=== PATIENT | male | born 1970 | race Caucasian/White ===

== ENCOUNTER 2018-09-28 13:51 | Inpatient (IN) | payer OTHER ==
[2018-09-28] MEDS ORDERED: CITRIC ACID/SODIUM CITRATE 30 ML UDCUP PO PRN (13:59)
[2018-09-28] MEDS ORDERED: ONDANSETRON DISINTEGRATING 4 MG TAB PO PRN (13:59)
[2018-09-28] MEDS ORDERED: PROMETHAZINE HCL 25 MG TAB PO PRN (13:59)
--- NOTE | 2018-09-28 15:03 | BAPA ---
IDENTIFYING DATA: The patient is a 48-year-old white male brought in by his , jamaica Narayanan phill the recommendation of his outpatient psychiatrist, Angel Farrell MD. This manual writer has treated thi s patient in the past for his bipolar mood disorder with electroconvulsive therapy in 2006 and 2012. He has a recent psychiatric hospitalization at [place] in May of 2018. Sources of information include the patient, who is a fair historian, his , and conversation with Dr. Farrell. HISTORY OF PRESENT ILLNESS: Please see the manual writer's initial consultation dated 12/21/2012, and disch arge summary dated 12/25/2012. This patient deals with severe bipolar 1 disorder with history of psy chotic and near catatonic features, who presents now with predominantly depressed symptoms fluctuatin g with periods of mixed symptomatology. He is recently dealing with near-global insomnia, accompanie d by racing thoughts, agitation, free-floating anxiety, nihilistic and self-deprecating rumination. He has some diminishment of appetite. He suffers with anergia, amotivation, anhedonia, excessive jennifer lt, indecision, and hopelessness. He has never felt this hopeless in his life, and has been contempl ating certain ways of killing himself including the handgun that they keep in his home, that his has hidden from him, or hanging himself. He has recently asked the for the gun. He was hospitalized in May of this year at [place] after he presumed that his long-standing medi cations, Seroquel 450 mg and Lamictal 200 mg, were no longer working as he was having impairment in s leep and increased agitation. His symptoms at that time were more consistent with a charla mixed stat e with severe agitation to the point of banging his head and global insomnia. His Seroquel was taken off and replaced by olanzapine. He also took himself off Lamictal, feeling a sense of futility arou nd any medications. The mixed episode has transitioned into predominantly depressed 1 with intersper sed mixed states. Dr. Farrell has been kept somewhat at arm's length by the patient as he has tried t o "white knuckle it" and get through, hoping it would just get better on its own. Dr. Farrell, davina mendoza, did start Ativan 2 mg at h.s. for sleep with no real benefit. The patient denies any medical issu es that could be contributing to this or no change in his medical status, which is significant only f or history of tension headaches and mild dyslipidemia, nor does he endorse present active substance u se. He does admit, however, to trying CBD and then vaping THC to help with sleep. These backfired. He has a long list of medications by history that were either poorly tolerated, made things worse or simply did not help. This is providing him further sense of futility. He is feeling somewhat caugh t between a rock and a hard place as he also is fearful about ECT given the degree of nausea he had w ith it in the past. Both he and acknowledged, however, that it was the most quickly and robustl y effective treatment he has had the 2 times he has done it historically. PAST PSYCHIATRIC HISTORY, MEDICAL HISTORY, FAMILY HISTORY, SOCIAL HISTORY: Please see the manual writer's c onsultation dated December of 2012. MEDICAL AND SUBSTANCE-RELATED ISSUES: Noncontributory. FAMILY HISTORY: Remains unchanged of course, and is significant for dense family history of bipolar illness and the use of ECT in a paternal grandmother. MENTAL STATUS EXAM: The patient is a 48-year-old white male who appears his stated age. There is ps ychomotor retardation and affect of blunting, with intermittent eye contact, impoverishment of speech . He has adequate grooming and hygiene, and is appropriately dressed. There is no outward evidence of hallucinations and he denies any delusional material or hallucinations, although his degree of clementine f-deprecating rumination is excessive. His mood is predominantly depressed, but he has episodic kevin ods of mixed states. Cognitively, there is impairment in focus, concentration, and short-term memory . Mini-mental state exam is pending. Impulse control is getting more tenuous around his thoughts an d plans to self-harm. Judgment and insight are impaired. ADMITTING DIAGNOSES: Morrow I: Bipolar 1 disorder, mixed with history of psychotic and catatonic features. Morrow II: Deferred. Morrow III: Tension headaches. Morrow IV: Moderate. Morrow V: 30. It is my judgment, with which Dr. Farrell, patient, and agree, that we should re-implement bilate ral ECT treatment given his high acuity and sense that he is only getting worse and worse. There is a high risk of suicide in this patient at this time. He has a sense of futility around medications, some of which is objectively realistic as he has had historically poor toleration and inadequate resp onse to medications. He will need aggressive antinausea treatment with his ECT, which will be discus sed with the anesthesia team. I will avoid ketamine this time. I will increase his Zyprexa from 10 mg to 15, and switch his Ativan to Restoril 15 mg, which has a somewhat shorter half-life and allow, arguably, for better seizures. Some organic labs as well as routine medical testing, including EKG, and H and P have been ordered. /[id number]/MODL
--- NOTE | 2018-09-28 18:32 | ASMTTLCEVL ---
TLC Evaluation - Basic Information Evaluation Start Date and 09/28/2018 05:55 PM Time Hospital Status Answers: Voluntary Patient statement Notes: Pt is a direct admit, per Dr Walsh, onto [facility] for ECT. This clinician did not observe or interact with pt.and the contents of this report are based on Dr. Walsh's Psychiatric Assess and History (PAH) Narrative Notes: The pt is a 48y/o , male who came to [facility] to begin his ECT treatments for his bipolar mood disorder. The pt deals with severe bipolar 1 disorder with hx of psychotic and near catatonic features, who presents now with predominantly depressed symptoms fluctuating with periods of mixed symptomotology. He is recently dealing with near-global insomnia, accompanied by racing thoughts, agitation, free floating anxiety, anhedonia, excessive guilt, indecision and hopelessness. He has never felt this hopeless in his life, and has been contemplating certain ways of killing himself including the handgun that they keep in his home, that his has hidden from him, or hanging himself. He has recently asked his for the gun. Diagnosis History Notes: Bipolar 1 Prior suicide attempts Notes: This cannot be found in the [facility] Prior hospitalizations Notes: May 2018 - [facility] Responses Notes: He has a long list of medications by hx that were either poorly tolerated, made things worse or simply did not work. He has had ECT 2x before. Both times it was the most quickly and robustly effective treatment he has done. He was impacted by severe nausea. History of violence Notes: This was not found in the [facility] Psychiatrist: Angel Farrell Medications (name, dosage, route, freq uency) Notes: During ECT treatments: Zyprexa 15mg Restoril 15mg Allergies/Reaction Notes: This was not found in the [facility] Sleep Notes: Global insomnia Appetite Notes: This was not found in the [facility] Medical/Surgical history Notes: Non-contributory Substance use history (frequency, intensity, his tory, duration) Notes: Non-contributory Family composition Notes: This was not found in the [facility] Need for family Answers: Yes participation in patient's care Family psychiatric/substance abuse history Notes: This was not found in the [facility] Developmental history Notes: This was not found in the [facility] Marital status/children Notes: Living situation Notes: Lives with Sexual history/orientation Notes: This was not found in the [facility] Peer support/family strengths Notes: Education level/history Notes: This was not found in the [facility] Work history Notes: This was not found in the [facility] Notes: This was not found in the [facility] Legal Notes: This was not found in the [facility] Scientology/Spiritual Notes: This was not found in the [facility] Leisure Notes: This was not found in the [facility] Collateral Notes: Report by Dr walsh, dated 09/28/2018 TLC Evaluation - Mental Status Exam Appearance: Answers: Appropriate Clean Well Groomed Neat Eye Contact: Answers: Intermittent Mood: Answers: Depressed Affect: Answers: Blunted Behavior: Answers: Appropriate Depression Answers: Hopelessness Signs/Symptoms: Psychomotor Retardation Sad Mood Hallucinations: Answers: None Pt reported to have Answers: Yes suicidal/self-injuring ideation/behavior? Pt reported to be making Answers: Yes suicidal/self-injuring threats? Pt reported to have Answers: No aggression/assault ideation/behavior? Pt reported to be making Answers: No aggression/assault threats? Patient has a specific Answers: Yes plan? Pt has access to means to Answers: Yes execute the plan? Ideation involves Answers: Yes serious/lethal intent? Ideation has Answers: No delusional/hallucinatory content? History of serious Answers: No physical harm to self/others while in treatment setting? TLC Evaluation - Suicide/Homicide Risk Suicide Risk Factors: Answers: < 20 or > 40 Years of Age Access to Firearms Anhedonia Bipolar Disorder Global Insomnia Impulsivity Organized Lethal Plan Current Suicidal Answers: Yes Ideation? Current Suicidal Ideation Answers: Yes in the Past 48 Hours? Current Suicidal Ideation Answers: Yes in the Past Month? Suicide Internal Answers: Absence of Psychosis Protective Factors: Suicide External Answers: Positive Therapeutic Protective Factors: Relationships Social Support Ranking of patient's Answers: Low homicidal risk: TLC Evaluation - Wrap-up AXIS I Diagnosis (include DSM-V and ICD-10 codes), must also be entered in [employer], which is the source of truth. Notes: Bipolar I Disorder, current or most recent episode depressed, severe 296.53 (F31.4) Evaluation End Date and 09/28/2018 06:30 PM Time (HH:MM): Date Signed: 09/28/2018 06:32 PM Electronically Signed By:Jaclyn Adams
--- NOTE | 2018-09-28 19:00 | ASMTTCLDSP ---
TLC Discharge Disposition Disposition: Answers: Admit Discharge Concerns/Recommendations: Notes: Direct admit for ECT, Dr Bryan. For inpatient Dr Bryan admission, the following psychiatrist agreed to accept patient for admission to [facility]): Date Signed: 09/28/2018 06:59 PM Electronically Signed By:Jaclyn Adams
[2018-09-28] MEDS: OLANZapine 10 MG TAB PO SCH (20:14)
[2018-09-28] MEDS ORDERED: TEMAZEPAM 15 MG CAP PO SCH (21:00)
--- NOTE | 2018-09-29 07:46 | ASMTBHMTP ---
Master Treatment Plan Master Treatment Plan Answers: Depressed Mood with for: Suicidal Ideation Date: 09/28/2018 Diagnosis on Admission: Bi-Polar I Disorder, current-recent episode depressed, severe 296.53 (F31.4) Expected length of stay: 3-5 days Reason for admission: Notes: Per Report: The pt is a 48y/o , male who came to [facility] to begin his ECT treatments for his bipolar mood disorder. The pt deals with severe bipolar 1 disorder with hx of psychotic and near catatonic features, who presents now with predominantly depressed symptoms fluctuating with periods of mixed symptomotology. He is recently dealing with near-global insomnia, accompanied by racing thoughts, agitation, free floating anxiety, anhedonia, excessive guilt, indecision and hopelessness. He has never felt this hopeless in his life, and has been contemplating certain ways of killing himself including the handgun that they keep in his home, that his has hidden from him, or hanging himself. He has recently asked his for the gun. Patient's stated presenting problems: Notes: "I haven't been sleeping and need some meds changed." Patient's goals for treatment: Notes: "to get my sleep back" Patient's strengths: Notes: smart, have a family Identify supports outside of hospital: Notes: Yes, Discharge criteria: Notes: Suicidal Ideation will resolve and patient will have a plan to safely manage recurrent suicidal ideation.* Initial disposition plan/considerations: Notes: return home after discharge* Master Treatment Plan Required Signatures Psychiatrist signature: Answers: Psychiatrist: RN on-shift signature: Answers: RN: Patient signature: Answers: Patient: Date Signed: 09/29/2018 07:46 AM Electronically Signed By:Jamari Ledezma
[2018-09-29 07:54] LABS: PLATELET COUNT 240 10^3/uL (150-400)
--- NOTE | 2018-09-29 11:00 | CPEKG ---
Test Reason : OPEN Blood Pressure : / mmHG Vent. Rate : 048 BPM Atrial Rate : 048 BPM P-R Int : 164 ms QRS Dur : 092 ms QT Int : 424 ms P-R-T Axes : 069 005 025 degrees QTc Int : 379 ms SINUS BRADYCARDIA Confirmed by Cruz Benavidez ([id number]) on 09/29/2018 11:00:22 AM Referred By: Confirmed By:Cruz Benavidez
--- NOTE | 2018-09-29 14:24 | SOAPPROG ---
SOAP Progress Note Assessment/Plan: Assessment: Bipolar I, mixed/depressed with h/o psychotic and catatonic fxs Tension HAs Mild dyslipidemia Plan: Reviewed medication options such as increasing temazepam to 30 mg (as 15 brought no benefit on sleep) and reviewed SEs vs benefit of increasing Zyprexa to 15 mg from 10. No sense of benefit, no sleep, but no akithesia/EPS. Reviewed idea of re-starting LMT with plan to optimize dose based on blood level. OTherwise, we reviewed R/B/A's regarding ECT vs other options. Pt gives I/C to start Bilateral ECT tomarrow. Review of EKG, Labs and H and P are non contributory. We discussed APA based guidelines for being a candidate for this procedure, including factors such as acuity, treatment resistance/intolerance, pt preference, the risk of inaction or inadequate action (ie, morbidity or mortality from SI of mood disorder if under treated), and the role of possible diagnostic uncertainty.Alternative treatments, such as further med trial(s), TMS , or psychotherapies were discussed. Star D data was used to inform this medical decision making process, comparing relative remission rates with further med trials in a treatment resistant cohort with remission and response rates using ECT in TRD.The risks were highlighted including mortality from anesthesia, TN, arrhythmia, or CVA.Common, nuisance side effects were discussed including headache, nausea/emesis, jaw pain , muscle aches.Cognitive side effects were discussed extensively, both verbally and with written handout. This included the potential for: anterograde and retrograde amnesia; transient delirium; hypofrontality with abulia and slowed processing speed ;a sense of derealization/depersonalization. State dependent memory issues were discussed as a form of remote memory effect that may be more a function of ones very improvement than a side effect of ECT itself. Again, all these risks and side effects were balanced against the risk using alternative or status quo treatment. We discussed RUL vs Bilateral ECT. We chose to avoid ketamine this time due to nausea issues. Typical course is 6-18 ECTs, 2-3 times per week. Often RUL takes longer to complete than Bilateral, and up to 50% of our patients who start with RUL switch at some point to bilateral due to inadequate or slow response. Pt chose to start with Bilateral. Maintenance ECT was discussed as beneficial to reduce relapse risk, when used with meds, rather than either modality alone or , of course, neither modality, with its 85% relapse risk in the months following acute ECT in those who respond initially. Discussed the need for 24/7 supervision for any part of acute ECT done outpatient. This supervision should persist for at least two weeks beyond the end of the acute phase. All above accomplished using language understood to patient and family, with ample opportunity given to answer questions and express concerns. 09/29/18 14:21 09/29/18 14:28 Objective: Vital Signs Temp Pulse Resp BP Pulse Ox 36.8 C 61 15 94/50 L 94 09/29/18 06:00 09/29/18 06:00 09/29/18 06:00 09/29/18 06:00 09/29/18 06:00 Laboratory Results 09/29/18 06:00 09/29/18 06:00 Laboratory Tests 09/29/18 09/29/18 06:00 06:00 C-React Prot High Sens 0.9 Total Protein 6.0 L 25-OH Vitamin D Total 55.7 TSH 1.790 ICD10 Worksheet Patient Problems: Problems Problem Status Onset Bipolar I disorder Acute - ICD10 Problem Qualifiers (1) Bipolar I disorder
--- NOTE | 2018-09-29 17:07 | BCON ---
INTERNAL MEDICINE CONSULTATION. DATE OF CONSULTATION: 09/29/2018 REFERRING PHYSICIAN: Tashi Bryan MD REASON FOR REFERRAL: Medical clearance for inpatient behavioral health stay. HISTORY OF PRESENT ILLNESS: This patient came to [facility] for electroconvulsive therapy. He has bipolar disorder and he was doing well since receiving ECT in 2012, but has had subsequent exacerbation of symptoms including severe insomnia which has been refractory to medication changes made by his primary psychiatrist. He is returning for repeat electroconvulsive therapy. Other than feeling anxious about the therapy coming up, he has no acute complaints. PAST MEDICAL HISTORY: 1. Headaches. 2. Dyslipidemia. 3. Bipolar disorder. PAST SURGICAL HISTORY: He has not had any surgeries. MEDICATIONS: Prior to admission: 1. Olanzapine 10 mg p.o. at bedtime. 2. Lorazepam 2 mg p.o. at bedtime. ALLERGIES: There are no known drug allergies. SOCIAL HISTORY: He is and lives with his and children. He works in sales. He is a nonsmoker and does not use alcohol. FAMILY HISTORY: Noncontributory. REVIEW OF SYSTEMS: He has not had headaches for quite a while. He has had a gradual weight loss over several years. He reports that he used to exercise quite a bit more and does not exercise much now, but also does not eat as much and has had some weight loss. He denies fevers or chills, cough, dyspnea, chest pain, palpitations, nausea, vomiting, constipation, diarrhea, dysuria or urinary frequency. Otherwise, a 10-point review of systems is negative. PHYSICAL EXAM: VITAL SIGNS: Blood pressure is 94/50, heart rate is 61, respiratory rate is 15, oxygen saturation is 94% on room air. Temperature is 36.8 degrees. GENERAL: Well-nourished well-developed man, appears chronologic age. Cooperative and in no acute distress: HEENT: Extraocular movements are intact. Pupils are equal, round, reactive to light. Mucous membranes are moist. Dentition is in good condition. He has an uncrowded airway, Mallampati class 1. NECK: Supple. HEART: There is regular rate and rhythm with no murmurs, rubs, or gallops. LUNGS: Clear to auscultation bilaterally. ABDOMEN: Benign. EXTREMITIES: There is no cyanosis, clubbing, or edema. NEUROLOGIC: He is alert and oriented x3. Cranial nerves 2-12 are grossly intact. There is no focal weakness. Sensation is intact to light touch and gait is within normal limits. LABORATORY STUDIES: Drawn today. CBC was entirely within normal limits. Serum chemistry revealed normal renal function and electrolytes. Total protein was slightly low at 6 but albumin was normal at 3.8. C-reactive protein was normal. Liver functions were normal. Vitamin D level was normal at 55.7. TSH was normal at 1.79. Urinalysis was normal. Toxicology screen in the urine was negative for any substances of abuse. Of note, on his prior inpatient Behavioral Health stay of December 2012, laboratory studies reveal dyslipidemia with a total cholesterol of 206 and an LDL of 136, HDL was 55. EKG was reviewed by me and he had normal sinus rhythm with sinus bradycardia. ASSESSMENT/RECOMMENDATIONS: 1. Bipolar disorder with plan for ECT per psychiatrist, Dr. Bryan. 2. Dyslipidemia. Based on his lipid panel of 2012, his 10 year risk of heart disease calculates at 1.9% and there is no indication for medication. He can address this again with his primary care provider if he cares to. He should consider repeat lipid panel every 5-10 years. 3. Weight loss, likely due to lifestyle changes. It would probably benefit him to resume a higher level of exercise. O please add to labs after the labs. I see no medical contraindications to this patient's continued stay on the inpatient behavioral health unit or to any psychiatric medications or procedures. Thank you very much for including me in the care of this patient and please do not hesitate to contact me or the hospitalist service should there be need for further medical evaluation. /[id number]/MODL MTDD
[2018-09-29] MEDS: TEMAZEPAM 15 MG CAP PO SCH (21:04)
[2018-09-29] MEDS: OLANZapine 10 MG TAB PO SCH (21:04)
[2018-09-30] MEDS: SCOPOLAMINE HYDROBROMIDE 1 MG/3 DAYS PATCH TD SCH (07:00)
[2018-09-30] MEDS ORDERED: PROMETHAZINE HCL 25 MG TAB ONE (09:45)
[2018-09-30] MEDS ORDERED: ONDANSETRON DISINTEGRATING 4 MG TAB ONE (09:45)
[2018-09-30] MEDS ORDERED: CITRIC ACID/SODIUM CITRATE 30 ML UDCUP ONE (09:46)
[2018-09-30] MEDS: NS 1,000 ML IV PRN ×2 (09:49→10:37)
[2018-09-30] MEDS ORDERED: fentaNYL 100 MCG/2 ML INJ ONE (10:06)
[2018-09-30] MEDS ORDERED: MIDAZOLAM 2 MG/2 ML VIAL ONE (10:06)
[2018-09-30] MEDS ORDERED: KETOROLAC 30 MG/1 ML SDV ONE (10:07)
--- NOTE | 2018-09-30 10:14 | PDECTPN ---
ECT Progress Note Patient Problems: Problems Problem Status Onset Code Bipolar I disorder Acute F31.9 Date: 09/30/18 Treatment#: 1 ECT provider: Tashi Bryan Anesthesia: Tati Fagan Stimulus dose (%): 25 Pulse width: 0.5 ECT EMG (sec): 58 ECT EEG (sec): 130 ECT treatment type: bilateral QIDS-SR Total Score: 20 QIDS-SR Question #12 Score: 2 MMSE Total Score (Max = 21): 21 Next ECT date: 10/02/18 Next ECT time: 10:45 O/P psychiatrist follow up with Dr.: Bud O/P psychiatrist follow up: phone, voice message Home medications: Medication Instructions Recorded LORazepam [Lorazepam] 2 mg PO HS 09/29/18 OLANZapine [Zyprexa] 10 mg PO HS 09/29/18 Medication review: completed Current treatment plan: acute phase Treatment plan frequency: 3 times per week ECT narrative: Pt reported some improved sleep on Restoril 30 mg. Still had excellent seizure today on this benzo. Still quite dysphoric and hopeless with SI and tenuous I/C around self harm if he were not on unit. Affect blunted, pmr, impov speech, No AVT halluc. positive rumination. Starting Bilateral ECT with aggressive anti-nausea regimen. Using extra IV fluids, got propofol, along with phenergan and zofran. Pt gives I/C to start Lamictal
[2018-09-30] MEDS ORDERED: NALOXONE HCL 0.4 MG/ML INJ IVP PRN (10:19)
[2018-09-30] MEDS ORDERED: HYDROCODONE/APAP 5/325 TAB PO PRN (10:19)
[2018-09-30] MEDS ORDERED: PROMETHAZINE HCL 25 MG TAB PO PRN (10:19)
[2018-09-30] MEDS ORDERED: ONDANSETRON DISINTEGRATING 4 MG TAB PO PRN (10:19)
--- NOTE | 2018-09-30 10:20 | PDHPUP ---
History & Physical Update H&P update statement: This history and physical update is based on an assessment of the patient which was completed after admission or registration (within 24 hours), but prior to the surgery/procedure. H&P update: H&P reviewed & patient examined, no change in patient's condition since H&P completed
--- NOTE | 2018-09-30 10:20 | PDANEPAE ---
ECT Pre Anesthetic Evaluation Allergies/Adverse Reactions: No Known Allergies Allergy (Verified 12/20/12 10:59) Patient ID confirmed: Yes H&P reviewed: Yes Pre-anesthetic history reviewed: Yes Heart: regular rate and rhythym, no murmur, rub, or gallop Lungs: no respiratory distress, no rales or rhonchi, clear to auscultation Mallampati Score: Class 1 ASA Status: II Home Medications: Medication Instructions Recorded LORazepam [Lorazepam] 2 mg PO HS 09/29/18 OLANZapine [Zyprexa] 10 mg PO HS 09/29/18 Medication review: completed Patient interviewed: Yes Patient examined: Yes Anesthetic plan discussed with patient: Yes Anesthetic risks discussed with patient: Yes ECT Pre-Anesthetic History - Height & Weight Height: 187.96 cm Weight: 97.522 kg BMI: 27.62 - Anesthesia History Hx Anesthesia Complications (with details): States he experiences nausea post- ECT. - Tobacco/Alcohol/Drug Use Smoking Status: Never smoked Hx Drug/Substance Abuse: No Alcohol Use: No - Prior Surgeries/Hospitalizations Prior Surgeries: None. Prior Medical Hospitalizations: Pt states hospitalized on a behavioral health unit in May 2018 and [facility] in 2012. - Pulmonary History ECT Hx Asthma: No Hx Abnormal Chest X-Ray: No Hx Oxygen in Use at Home: No - Cardiovascular History Hx Hypertension: No Currently Uses Hypertension Medication: No Hx Arrhythmias: No Hx Palpitations: No Hx Chest Pain: No Hx Coronary Artery / Peripheral Vascular Disease: No Hx Blood Clot: No Cardiovascular History Comment: Pt states grandmother had congestive heart failure. - Neurologic History Hx Cerebrovascular Accident: No Hx CT Scan Or MRI Of The Brain: No Hx Epilepsy, Convulsions, Seizures, Or Blackouts: No Hx Frequent Or Severe Headaches: No Hx Numbness: No Hx Neurologic Disorder: No Neurologic History Comment: Pt states mother has Parkinson's. - Dental History Current Dental Issues: Caps Dental History Comment: Cap/veneer on front tooth. - Endocrine History Hx Diabetes: No Current Daily Insulin Injections: No Hx Thyroid Problems: No - Renal/Urologic History Hx Renal Disorders: No Hx Urinary Tract Problems: No - Liver History Hx Hepatic Disorders: No - Cancer History Hx Cancer: No - Hematology History Hx Unexplained Bleeding Of Any Type: No Hx Ease Of Bruising: No Hx Anemia: No - Gastrointestinal History Hx Gastroesophogeal Reflux Disease: No Hx Ulcers: No Hx Hiatal Hernia: No Hx Difficulty Swallowing: No - Musculoskeletal Hisory Hx Chronic Pain: No Hx Arthritis: No - Opthalmic History Hx Glaucoma: No Visual Assistive Devices: Glasses Hx Opthalmic Disorders: No - Other Health History Physical Disabililty: No Recent Cough, Cold, or Fever: No Significant Weight Loss In The Last 4 Months: No Possible the Patient Might be : No
--- NOTE | 2018-09-30 10:27 | POSTANESTH ---
Post Anesthetic Evaluation Cardiovascular Status: Normal, Stable, Similar to Pre-Op Cond Respiratory Status: Normal, Stable, Similar to Pre-op Cond. Level of Consciousness/Mental Status: Moderately Sleepy Pain Control: Adequate, Prn Tx Ordered Nausea/Vomiting Control: Adequate, Prn Tx Ordered Complications Possibly Related to Anesthesia: None Noted
[2018-09-30] MEDS: OLANZapine 10 MG TAB PO SCH (20:04)
[2018-09-30] MEDS: lamoTRIgine 25 MG TAB PO SCH (20:05)
[2018-09-30] MEDS: TEMAZEPAM 15 MG CAP PO SCH (20:05)
--- NOTE | 2018-10-01 14:22 | SOAPPROG ---
SOAP Progress Note Assessment/Plan: Assessment: Bipolar I, mixed/depressed with h/o psychotic and catatonic fxs Tension HAs Mild dyslipidemia Plan: Reviewed medication options such as increasing temazepam to 30 mg (as 15 brought no benefit on sleep) and reviewed SEs vs benefit of increasing Zyprexa to 15 mg from 10. No sense of benefit, no sleep, but no akithesia/EPS. Reviewed idea of re-starting LMT with plan to optimize dose based on blood level. OTherwise, we reviewed R/B/A's regarding ECT vs other options. Pt gives I/C to start Bilateral ECT tomarrow. Review of EKG, Labs and H and P are non contributory. We discussed APA based guidelines for being a candidate for this procedure, including factors such as acuity, treatment resistance/intolerance, pt preference, the risk of inaction or inadequate action (ie, morbidity or mortality from SI of mood disorder if under treated), and the role of possible diagnostic uncertainty.Alternative treatments, such as further med trial(s), TMS , or psychotherapies were discussed. Star D data was used to inform this medical decision making process, comparing relative remission rates with further med trials in a treatment resistant cohort with remission and response rates using ECT in TRD.The risks were highlighted including mortality from anesthesia, [place], arrhythmia, or CVA.Common, nuisance side effects were discussed including headache, nausea/emesis, jaw pain , muscle aches.Cognitive side effects were discussed extensively, both verbally and with written handout. This included the potential for: anterograde and retrograde amnesia; transient delirium; hypofrontality with abulia and slowed processing speed ;a sense of derealization/depersonalization. State dependent memory issues were discussed as a form of remote memory effect that may be more a function of ones very improvement than a side effect of ECT itself. Again, all these risks and side effects were balanced against the risk using alternative or status quo treatment. We discussed RUL vs Bilateral ECT. We chose to avoid ketamine this time due to nausea issues. Typical course is 6-18 ECTs, 2-3 times per week. Often RUL takes longer to complete than Bilateral, and up to 50% of our patients who start with RUL switch at some point to bilateral due to inadequate or slow response. Pt chose to start with Bilateral. Maintenance ECT was discussed as beneficial to reduce relapse risk, when used with meds, rather than either modality alone or , of course, neither modality, with its 85% relapse risk in the months following acute ECT in those who respond initially. Discussed the need for 24/7 supervision for any part of acute ECT done outpatient. This supervision should persist for at least two weeks beyond the end of the acute phase. All above accomplished using language understood to patient and family, with ample opportunity given to answer questions and express concerns. 09/29/18 14:21 09/29/18 14:28 NOTE from 09/30/18: Pt reported some improved sleep on Restoril 30 mg. Still had excellent seizure today on this benzo. Still quite dysphoric and hopeless with SI and tenuous I/C around self harm if he were not on unit. Affect blunted, pmr, impov speech, No AVT halluc. positive rumination. Starting Bilateral ECT with aggressive anti-nausea regimen. Using extra IV fluids, got propofol, along with phenergan and zofran. Pt gives I/C to start Lamictal 10/01/18 Provided psychoed re mood disorder treatment as involving more than simply correcting sleep. He is preoccupied with sleep being the cause rather than a symptom of his mood issues. No signif REYES, n/v from ECT #1. Had better sleep last night. Affect a bit brighter. A bit less tense. Still with hopelessness, rumination and SI. Cont acute B ECT Objective: Vital Signs Temp Pulse Resp BP Pulse Ox 36.8 C 75 14 92/56 L 92 10/01/18 07:04 10/01/18 07:04 10/01/18 07:04 10/01/18 07:04 10/01/18 07:04 Laboratory Results 09/29/18 06:00 09/29/18 06:00 09/30/18 10/01/18 10/02/18 05:59 05:59 05:59 Intake Total 1600 Balance 1600 ICD10 Worksheet Patient Problems: Problems Problem Status Onset Bipolar I disorder Acute - ICD10 Problem Qualifiers (1) Bipolar I disorder
[2018-10-01] MEDS: OLANZapine 10 MG TAB PO SCH (20:21)
[2018-10-01] MEDS: lamoTRIgine 25 MG TAB PO SCH (20:48)
[2018-10-01] MEDS: TEMAZEPAM 15 MG CAP PO SCH (21:59)
[2018-10-02] MEDS ORDERED: ONDANSETRON DISINTEGRATING 4 MG TAB PO PRN ×2 (04:00→11:39)
[2018-10-02] MEDS ORDERED: CITRIC ACID/SODIUM CITRATE 30 ML UDCUP PO PRN (04:00)
[2018-10-02] MEDS ORDERED: PROMETHAZINE HCL 25 MG TAB PO PRN ×2 (04:00→11:39)
[2018-10-02] MEDS ORDERED: NS 1,000 ML IV PRN (04:00)
[2018-10-02] MEDS ORDERED: LIDOCAINE 2% 5 ML SDV ONE (06:07)
[2018-10-02] MEDS: SCOPOLAMINE HYDROBROMIDE 1 MG/3 DAYS PATCH TD SCH (06:27)
[2018-10-02] MEDS ORDERED: PROMETHAZINE HCL 25 MG TAB ONE (11:25)
[2018-10-02] MEDS ORDERED: CITRIC ACID/SODIUM CITRATE 30 ML UDCUP ONE (11:25)
[2018-10-02] MEDS ORDERED: ONDANSETRON DISINTEGRATING 4 MG TAB ONE (11:26)
[2018-10-02] MEDS ORDERED: MIDAZOLAM 2 MG/2 ML VIAL ONE (11:29)
[2018-10-02] MEDS ORDERED: GLYCOPYRROLATE 0.2 MG/1 ML VIAL ONE (11:30)
[2018-10-02] MEDS ORDERED: fentaNYL 100 MCG/2 ML INJ ONE (11:30)
[2018-10-02] MEDS ORDERED: NALOXONE HCL 0.4 MG/ML INJ IVP PRN (11:39)
[2018-10-02] MEDS ORDERED: HYDROCODONE/APAP 5/325 TAB PO PRN (11:39)
--- NOTE | 2018-10-02 11:43 | PDECTPN ---
ECT Progress Note Patient Problems: Problems Problem Status Onset Code Bipolar I disorder Acute F31.9 Date: 10/02/18 Treatment#: 2 ECT provider: Tashi Bryan Anesthesia: Tati Stojeff Stimulus dose (%): 30 Pulse width: 0.5 ECT EMG (sec): 50 ECT EEG (sec): 75 ECT treatment type: bilateral QIDS-SR Total Score: 16 QIDS-SR Question #12 Score: 1 MMSE Total Score (Max = 21): 21 Next ECT date: 10/05/18 Next ECT time: 09:30 O/P psychiatrist follow up with Dr.: Bud O/P psychiatrist follow up: phone, voice message Home medications: Medication Instructions Recorded LORazepam [Lorazepam] 2 mg PO HS 09/29/18 OLANZapine [Zyprexa] 10 mg PO HS 09/29/18 Current treatment plan: acute phase Treatment plan frequency: 3 times per week ECT narrative: Pt reported some improved sleep on Restoril 30 mg. Still had excellent seizure today on this benzo. Still quite dysphoric and hopeless with SI and tenuous I/C around self harm if he were not on unit. Affect blunted, pmr, impov speech, No AVT halluc. positive rumination. Starting Bilateral ECT with aggressive anti-nausea regimen. Using extra IV fluids, got propofol, along with phenergan and zofran. Pt gives I/C to start Lamictal 10/02/18 pt QIDs is 16/1, down from 20/2. Feels a bit improved. Sleep still poor with dysphoria, on going SI (simply less intense), periodic racing thoughts/ rumination with nihilstic/self deprecating/guilt themes. Affect constricted, a bit better eye contact, PMR. Tolerating Zyprexa 15 and Restoril 30 mg. No rash with newly restarted LMT at 25 mg. Cont acute Bilateral ECT.
--- NOTE | 2018-10-02 11:50 | PDANEPAE ---
ECT Pre Anesthetic Evaluation Allergies/Adverse Reactions: No Known Allergies Allergy (Verified 12/20/12 10:59) Patient ID confirmed: Yes H&P reviewed: Yes Pre-anesthetic history reviewed: Yes Heart: regular rate and rhythym, no murmur, rub, or gallop Lungs: no respiratory distress, no rales or rhonchi Mallampati Score: Class 1 ASA Status: II Home Medications: Medication Instructions Recorded LORazepam [Lorazepam] 2 mg PO HS 09/29/18 OLANZapine [Zyprexa] 10 mg PO HS 09/29/18 Medication review: completed Patient interviewed: Yes Patient examined: Yes Anesthetic plan discussed with patient: Yes Anesthetic risks discussed with patient: Yes ECT Pre-Anesthetic History - Height & Weight Height: 187.96 cm Weight: 97.522 kg BMI: 27.62 - Anesthesia History Hx Anesthesia Complications (with details): States he experiences nausea post- ECT. - Tobacco/Alcohol/Drug Use Smoking Status: Never smoked Hx Drug/Substance Abuse: No Alcohol Use: No - Prior Surgeries/Hospitalizations Prior Surgeries: None. Prior Medical Hospitalizations: Pt states hospitalized on a behavioral health unit in May 2018 and [facility] in 2012. - Pulmonary History ECT Hx Asthma: No Hx Abnormal Chest X-Ray: No Hx Oxygen in Use at Home: No - Cardiovascular History Hx Hypertension: No Currently Uses Hypertension Medication: No Hx Arrhythmias: No Hx Palpitations: No Hx Chest Pain: No Hx Coronary Artery / Peripheral Vascular Disease: No Hx Blood Clot: No Cardiovascular History Comment: Pt states grandmother had congestive heart failure. - Neurologic History Hx Cerebrovascular Accident: No Hx CT Scan Or MRI Of The Brain: No Hx Epilepsy, Convulsions, Seizures, Or Blackouts: No Hx Frequent Or Severe Headaches: No Hx Numbness: No Hx Neurologic Disorder: No Neurologic History Comment: Pt states mother has Parkinson's. - Dental History Current Dental Issues: Caps Dental History Comment: Cap/veneer on front tooth. - Endocrine History Hx Diabetes: No Current Daily Insulin Injections: No Hx Thyroid Problems: No - Renal/Urologic History Hx Renal Disorders: No Hx Urinary Tract Problems: No - Liver History Hx Hepatic Disorders: No - Cancer History Hx Cancer: No - Hematology History Hx Unexplained Bleeding Of Any Type: No Hx Ease Of Bruising: No Hx Anemia: No - Gastrointestinal History Hx Gastroesophogeal Reflux Disease: No Hx Ulcers: No Hx Hiatal Hernia: No Hx Difficulty Swallowing: No - Musculoskeletal Hisory Hx Chronic Pain: No Hx Arthritis: No - Opthalmic History Hx Glaucoma: No Visual Assistive Devices: Glasses Hx Opthalmic Disorders: No - Other Health History Physical Disabililty: No Recent Cough, Cold, or Fever: No Significant Weight Loss In The Last 4 Months: No Possible the Patient Might be : No
[2018-10-02] MEDS ORDERED: ACETAMINOPHEN 500 MG TAB PO PRN (11:55)
--- NOTE | 2018-10-02 12:02 | ASMTCMCOM ---
CM Note CM Note Notes: Pt reports feeling "pretty good". Pt. stated he is a bit anxious as he is heading to ECT after meeting with CC. Pt. reports his sleep "wasn't very good" adding he was not always asleep when staff checked on him. Pt. stated he "didn't get sleepy" and could hear other pt's toilets flushing. Pt. stated a good nights sleep is usually 6-7 hours. Pt. reports eating well and attending groups, adding he enjoys art group. Pt. stated he wishes he has more sedation with his medications. Pt. stated at night he tends to having racing thoughts and struggles to shut down his brain. Pt. denied SI, HI, AVH and paranoia. Pt. presents as alert, bit anxious but still fairly calm, friendly, good eye contact, appearing to have a bright affect, and cooperative. Staff report pt. sleeping 11 hours and being medication compliant. Date Signed: 10/02/2018 12:02 PM Electronically Signed By:Madisyn Aguero
[2018-10-02] MEDS: OLANZapine 10 MG TAB PO SCH (20:17)
[2018-10-02] MEDS: TEMAZEPAM 15 MG CAP PO SCH (20:17)
[2018-10-02] MEDS: lamoTRIgine 25 MG TAB PO SCH (20:17)
--- NOTE | 2018-10-03 13:55 | ASMTCMCOM ---
CM Note CM Note Notes: Pt. reports feeling "pretty good". Pt. stated ECT "was good" adding he "had no idea where I was for the first hour". Pt. reported having a "little headache" after ECT. Pt. graded his sleep last night as a "C+" adding the night before it was a "D". Pt. stated his sleep is a huge part of why he is currently in the hospital. Pt. reports eating well and attending groups. Pt. reports no issues with his current medications. Pt. denied any issues while on the unit. Pt. denied SI, HI, AVH and paranoia. Pt. presents as alert, calm, friendly, groomed, actively participating in treatment, and cooperative. Staff report pt. sleeping 11 hours and being medication compliant. Date Signed: 10/03/2018 01:54 PM Electronically Signed By:Madisyn Aguero
--- NOTE | 2018-10-03 14:11 | SOAPPROG ---
SOAP Progress Note Assessment/Plan: Assessment: Per Dr. Bryan's notes: Plan: Reviewed medication options such as increasing temazepam to 30 mg (as 15 brought no benefit on sleep) and reviewed SEs vs benefit of increasing Zyprexa to 15 mg from 10. No sense of benefit, no sleep, but no akithesia/EPS. Reviewed idea of re-starting LMT with plan to optimize dose based on blood level. OTherwise, we reviewed R/B/A's regarding ECT vs other options. Pt gives I/C to start Bilateral ECT tomarrow. Review of EKG, Labs and H and P are non contributory. We discussed APA based guidelines for being a candidate for this procedure, including factors such as acuity, treatment resistance/intolerance, pt preference, the risk of inaction or inadequate action (ie, morbidity or mortality from SI of mood disorder if under treated), and the role of possible diagnostic uncertainty.Alternative treatments, such as further med trial(s), TMS , or psychotherapies were discussed. Star D data was used to inform this medical decision making process, comparing relative remission rates with further med trials in a treatment resistant cohort with remission and response rates using ECT in TRD.The risks were highlighted including mortality from anesthesia, [place], arrhythmia, or CVA.Common, nuisance side effects were discussed including headache, nausea/emesis, jaw pain , muscle aches.Cognitive side effects were discussed extensively, both verbally and with written handout. This included the potential for: anterograde and retrograde amnesia; transient delirium; hypofrontality with abulia and slowed processing speed ;a sense of derealization/depersonalization. State dependent memory issues were discussed as a form of remote memory effect that may be more a function of ones very improvement than a side effect of ECT itself. Again, all these risks and side effects were balanced against the risk using alternative or status quo treatment. We discussed RUL vs Bilateral ECT. We chose to avoid ketamine this time due to nausea issues. Typical course is 6-18 ECTs, 2-3 times per week. Often RUL takes longer to complete than Bilateral, and up to 50% of our patients who start with RUL switch at some point to bilateral due to inadequate or slow response. Pt chose to start with Bilateral. Maintenance ECT was discussed as beneficial to reduce relapse risk, when used with meds, rather than either modality alone or , of course, neither modality, with its 85% relapse risk in the months following acute ECT in those who respond initially. Discussed the need for 24/7 supervision for any part of acute ECT done outpatient. This supervision should persist for at least two weeks beyond the end of the acute phase. All above accomplished using language understood to patient and family, with ample opportunity given to answer questions and express concerns. NOTE from 09/30/18: Pt reported some improved sleep on Restoril 30 mg. Still had excellent seizure today on this benzo. Still quite dysphoric and hopeless with SI and tenuous I/C around self harm if he were not on unit. Affect blunted, pmr, impov speech, No AVT halluc. positive rumination. Starting Bilateral ECT with aggressive anti-nausea regimen. Using extra IV fluids, got propofol, along with phenergan and zofran. Pt gives I/C to start Lamictal 10/01/18 Provided psychoed re mood disorder treatment as involving more than simply correcting sleep. He is preoccupied with sleep being the cause rather than a symptom of his mood issues. No signif REYES, n/v from ECT #1. Had better sleep last night. Affect a bit brighter. A bit less tense. Still with hopelessness, rumination and SI. Cont acute B ECT WEEKEND COVERAGE PLAN: 10/03/18 14:11 1. Patient sleeping much better since admission. Likely d/t combination of factors including increased Temazepam, start of ECT and more conducive environment. Despite sleeping 11+ hrs, patient rates his sleep "C+," but can't explain why his grade is so low. 2. Patient more socially engaged on unit. Well-groomed and dressed today. Present in milieu, participated in several groups. 3. Patient denies SI/HI, less hopeless and decreased perseveration than at admission. 4. No change to treatment. 5. Next ECT on Friday. Subjective: Patient slept 11+ hrs last night and this AM, yet still complains that sleep is not as good as he'd like. Patient perseverates about sleep to point that he believes the main focus of his treatment is to "get my sleep back to normal." reminded patient what Dr. Bryan told him: sleep is a symptom of his more pervasive mood disorder. That was rationale for prescribing lamotrigine, which patient has taken in past for bipolar disorder. Objective: Vital Signs Temp Pulse Resp BP Pulse Ox 36.7 C 69 14 101/59 L 97 10/03/18 06:00 10/03/18 06:00 10/03/18 06:00 10/03/18 06:00 10/03/18 06:00 Laboratory Results 09/29/18 06:00 09/29/18 06:00 10/02/18 10/03/18 10/04/18 05:59 05:59 05:59 Intake Total 950 Balance 950 MSE: Affect: Some brightening of affect Mood: Improved TP: Perseverates about sleep TC: Denies any SI/HI today Insight/Judgment: Fair - Time Spent With Patient Time Spent With Patient: 15" - Pending Discharge Pending Discharge Within 24 Hours: No Pending Discharge Within 48 Hours: No ICD10 Worksheet Patient Problems: Problems Problem Status Onset Bipolar I disorder Acute
[2018-10-03] MEDS: OLANZapine 10 MG TAB PO SCH (19:53)
[2018-10-03] MEDS: TEMAZEPAM 15 MG CAP PO SCH (19:55)
[2018-10-03] MEDS: lamoTRIgine 25 MG TAB PO SCH (19:55)
--- NOTE | 2018-10-04 15:09 | ASMTCMCOM ---
CM Note CM Note Notes: Pt. was on his way to group when CC spoke with him. Pt. reports feeling "catalina tony", adding it is hard for him to describe how he feels, adding he thinks it's "from being here for a week". Pt. stated he is eating well and attending groups. Pt. graded his sleep as a "C" today. Pt. reports no issues with his current medications. Pt. stated he has had no concerns while on the unit. Pt. denied SI, HI, AVH and paranoia. Pt. presents as alert, groomed, good eye contact, in a hurry to get to group, and cooperative. Staff report pt. sleeping 9 hours, being medication compliant, and is scheduled for ECT at 9:30am on Friday10/05/18 Date Signed: 10/04/2018 03:09 PM Electronically Signed By:Madisyn Aguero
--- NOTE | 2018-10-04 16:18 | SOAPPROG ---
SOAP Progress Note Assessment/Plan: Assessment: Per Dr. Bryan's notes: Plan: Reviewed medication options such as increasing temazepam to 30 mg (as 15 brought no benefit on sleep) and reviewed SEs vs benefit of increasing Zyprexa to 15 mg from 10. No sense of benefit, no sleep, but no akithesia/EPS. Reviewed idea of re-starting LMT with plan to optimize dose based on blood level. OTherwise, we reviewed R/B/A's regarding ECT vs other options. Pt gives I/C to start Bilateral ECT tomarrow. Review of EKG, Labs and H and P are non contributory. We discussed APA based guidelines for being a candidate for this procedure, including factors such as acuity, treatment resistance/intolerance, pt preference, the risk of inaction or inadequate action (ie, morbidity or mortality from SI of mood disorder if under treated), and the role of possible diagnostic uncertainty.Alternative treatments, such as further med trial(s), TMS , or psychotherapies were discussed. Star D data was used to inform this medical decision making process, comparing relative remission rates with further med trials in a treatment resistant cohort with remission and response rates using ECT in TRD.The risks were highlighted including mortality from anesthesia, [place], arrhythmia, or CVA.Common, nuisance side effects were discussed including headache, nausea/emesis, jaw pain , muscle aches.Cognitive side effects were discussed extensively, both verbally and with written handout. This included the potential for: anterograde and retrograde amnesia; transient delirium; hypofrontality with abulia and slowed processing speed ;a sense of derealization/depersonalization. State dependent memory issues were discussed as a form of remote memory effect that may be more a function of ones very improvement than a side effect of ECT itself. Again, all these risks and side effects were balanced against the risk using alternative or status quo treatment. We discussed RUL vs Bilateral ECT. We chose to avoid ketamine this time due to nausea issues. Typical course is 6-18 ECTs, 2-3 times per week. Often RUL takes longer to complete than Bilateral, and up to 50% of our patients who start with RUL switch at some point to bilateral due to inadequate or slow response. Pt chose to start with Bilateral. Maintenance ECT was discussed as beneficial to reduce relapse risk, when used with meds, rather than either modality alone or , of course, neither modality, with its 85% relapse risk in the months following acute ECT in those who respond initially. Discussed the need for 24/7 supervision for any part of acute ECT done outpatient. This supervision should persist for at least two weeks beyond the end of the acute phase. All above accomplished using language understood to patient and family, with ample opportunity given to answer questions and express concerns. NOTE from 09/30/18: Pt reported some improved sleep on Restoril 30 mg. Still had excellent seizure today on this benzo. Still quite dysphoric and hopeless with SI and tenuous I/C around self harm if he were not on unit. Affect blunted, pmr, impov speech, No AVT halluc. positive rumination. Starting Bilateral ECT with aggressive anti-nausea regimen. Using extra IV fluids, got propofol, along with phenergan and zofran. Pt gives I/C to start Lamictal 10/01/18 Provided psychoed re mood disorder treatment as involving more than simply correcting sleep. He is preoccupied with sleep being the cause rather than a symptom of his mood issues. No signif REYES, n/v from ECT #1. Had better sleep last night. Affect a bit brighter. A bit less tense. Still with hopelessness, rumination and SI. Cont acute B ECT WEEKEND COVERAGE PLAN: 10/03/18 14:11 1. Patient sleeping much better since admission. Likely d/t combination of factors including increased Temazepam, start of ECT and more conducive environment. Despite sleeping 11+ hrs, patient rates his sleep "C+," but can't explain why his grade is so low. 2. Patient more socially engaged on unit. Well-groomed and dressed today. Present in milieu, participated in several groups. 3. Patient denies SI/HI, less hopeless and decreased perseveration than at admission. 4. No change to treatment. 5. Next ECT on Friday. PLAN: 10/04/18 16:14 1. Patient has been sleeping 10+ hrs each night, but complains sleep is only "tony." 2. Says he wants to leave on Friday b/c he's going "stir crazy" in hospital. 3. Patient denies feeling hopeless and says mood has gotten "better." 4. Next ECT tomorrow. Subjective: Patient sitting in rocking chair watching football game on TV. He is calm, cheerful, smiles when talking to MD. He wants to know if he can d/c tomorrow. He reports last time he stayed in hospital he was only here for a week. MD mentioned that will be between patient and his ECT provider, and MD reviewed some criteria for determining whether patient has responded sufficiently to treatment. He still rates his sleep as poor despite getting > 9 hrs each night. Objective: Vital Signs Temp Pulse Resp BP Pulse Ox 36.7 C 63 14 116/68 94 10/04/18 06:00 10/04/18 06:00 10/04/18 06:00 10/04/18 06:00 10/04/18 06:00 Laboratory Results 09/29/18 06:00 09/29/18 06:00 10/03/18 10/04/18 10/05/18 05:59 05:59 05:59 Intake Total 950 Balance 950 MSE: Affect: Euthymic Mood: "Good" TP: Linear TC: Denies any SI/HI Insight/ Judgment: Fair - Time Spent With Patient Time Spent With Patient: 15" - Pending Discharge Pending Discharge Within 24 Hours: Yes Pending Discharge Date: 10/05/18 (Possible d/c early this week) Pending Discharge Time: 11:00 ICD10 Worksheet Patient Problems: Problems Problem Status Onset Bipolar I disorder Acute
[2018-10-04] MEDS: OLANZapine 10 MG TAB PO SCH (19:11)
[2018-10-04] MEDS: TEMAZEPAM 15 MG CAP PO SCH (20:09)
[2018-10-04] MEDS: lamoTRIgine 25 MG TAB PO SCH (20:09)
[2018-10-05] MEDS ORDERED: CITRIC ACID/SODIUM CITRATE 30 ML UDCUP PO PRN (04:00)
[2018-10-05] MEDS ORDERED: NS 1,000 ML IV PRN (04:00)
[2018-10-05] MEDS ORDERED: ONDANSETRON DISINTEGRATING 4 MG TAB PO PRN (04:00)
[2018-10-05] MEDS ORDERED: LIDOCAINE 2% 5 ML SDV ONE (06:14)
[2018-10-05] MEDS: SCOPOLAMINE HYDROBROMIDE 1 MG/3 DAYS PATCH TD SCH (06:50)
[2018-10-05] MEDS ORDERED: SCOPOLAMINE HYDROBROMIDE 1 MG/3 DAYS PATCH TD ONE (08:00)
[2018-10-05] MEDS ORDERED: MIDAZOLAM 2 MG/2 ML VIAL ONE (08:59)
[2018-10-05] MEDS ORDERED: fentaNYL 100 MCG/2 ML INJ ONE (08:59)
[2018-10-05] MEDS ORDERED: METHOHEXITAL SODIUM 100 MG/10 ML SYR IVP ONE (08:59)
[2018-10-05] MEDS ORDERED: ONDANSETRON DISINTEGRATING 4 MG TAB ONE (09:39)
[2018-10-05] MEDS ORDERED: CITRIC ACID/SODIUM CITRATE 30 ML UDCUP ONE (09:39)
[2018-10-05] MEDS ORDERED: PROMETHAZINE HCL 25 MG TAB PO PRN (09:58)
[2018-10-05] MEDS ORDERED: PROMETHAZINE HCL 25 MG TAB ONE (09:59)
--- NOTE | 2018-10-05 10:10 | POSTANESTH ---
Post Anesthetic Evaluation Cardiovascular Status: Normal, Stable Respiratory Status: Normal, Stable Level of Consciousness/Mental Status: Can Participate in Eval, Alert and Oriented Pain Control: Adequate, Prn Tx Ordered Nausea/Vomiting Control: Adequate, Prn Tx Ordered Complications Possibly Related to Anesthesia: None Noted
--- NOTE | 2018-10-05 10:15 | PDANEPAE ---
ECT Pre Anesthetic Evaluation Allergies/Adverse Reactions: No Known Allergies Allergy (Verified 12/20/12 10:59) Patient ID confirmed: Yes H&P reviewed: Yes Pre-anesthetic history reviewed: Yes Heart: regular rate and rhythym Lungs: clear to auscultation Mallampati Score: Class 1 ASA Status: II Home Medications: Medication Instructions Recorded LORazepam [Lorazepam] 2 mg PO HS 09/29/18 OLANZapine [Zyprexa] 10 mg PO HS 09/29/18 Medication review: completed Patient interviewed: Yes Patient examined: Yes See previous record: Yes Anesthetic plan discussed with patient: Yes Anesthetic risks discussed with patient: Yes ECT Pre-Anesthetic History - Height & Weight Height: 187.96 cm Weight: 102.767 kg BMI: 29.11 - Anesthesia History Hx Anesthesia Complications (with details): States he experiences nausea post- ECT. - Tobacco/Alcohol/Drug Use Smoking Status: Never smoked Hx Drug/Substance Abuse: No Alcohol Use: No - Prior Surgeries/Hospitalizations Prior Surgeries: None. Prior Medical Hospitalizations: Pt states hospitalized on a behavioral health unit in September 2018, in May 2018 and [facility] in 2012. - Pulmonary History ECT Hx Asthma: No Hx Abnormal Chest X-Ray: No Hx Oxygen in Use at Home: No - Cardiovascular History Hx Hypertension: No Currently Uses Hypertension Medication: No Hx Arrhythmias: No Hx Palpitations: No Hx Chest Pain: No Hx Coronary Artery / Peripheral Vascular Disease: No Hx Blood Clot: No - Neurologic History Hx Cerebrovascular Accident: No Hx CT Scan Or MRI Of The Brain: No Hx Epilepsy, Convulsions, Seizures, Or Blackouts: No Hx Frequent Or Severe Headaches: No Hx Numbness: No Hx Neurologic Disorder: No - Dental History Current Dental Issues: Caps Dental History Comment: Cap/veneer on front tooth. - Endocrine History Hx Diabetes: No Current Daily Insulin Injections: No Hx Thyroid Problems: No - Renal/Urologic History Hx Renal Disorders: No Hx Urinary Tract Problems: No - Liver History Hx Hepatic Disorders: No - Cancer History Hx Cancer: No - Hematology History Hx Unexplained Bleeding Of Any Type: No Hx Ease Of Bruising: No Hx Anemia: No - Gastrointestinal History Hx Gastroesophogeal Reflux Disease: No Hx Ulcers: No Hx Hiatal Hernia: No Hx Difficulty Swallowing: No - Musculoskeletal Hisory Hx Chronic Pain: No Hx Arthritis: No - Opthalmic History Hx Glaucoma: No Visual Assistive Devices: Glasses Hx Opthalmic Disorders: No - Other Health History Physical Disabililty: No Recent Cough, Cold, or Fever: No Significant Weight Loss In The Last 4 Months: No Possible the Patient Might be : No
--- NOTE | 2018-10-05 10:18 | PDECTPN ---
ECT Progress Note Patient Problems: Problems Problem Status Onset Code Bipolar I disorder Acute F31.9 Date: 10/05/18 ECT provider: Akbar Romo Anesthesia: Courtney Mcnamara Stimulus dose (%): 35 Pulse width: 0.5 ECT EMG (sec): 43 ECT EEG (sec): 60 ECT treatment type: bilateral QIDS-SR Total Score: 15 QIDS-SR Question #12 Score: 1 MMSE Total Score (Max = 21): 21 Next ECT date: 10/07/18 Next ECT time: 09:00 O/P psychiatrist follow up with DrAminta: Bud O/P psychiatrist follow up: phone, voice message Home medications: Medication Instructions Recorded LORazepam [Lorazepam] 2 mg PO HS 09/29/18 OLANZapine [Zyprexa] 10 mg PO HS 09/29/18 Medication review: completed Current treatment plan: acute phase Treatment plan frequency: 3 times per week ECT narrative: Pt seen in coverage for Dr. Bryan, chart reviewed. He reports feeling "a little better." Tolerating ECT well with diminished h/a and nausea and no notable cognitive issues. He tends to isolate in his room, but has attended groups. Staff notes him to be a bit more interactive over the weekend. Calm, pleasantly interactive. Affect is restricted, though smiles spontaneously at times. Mood is "better." TP is linear, fluent. TC reveals no overt psychosis. SI persists with a 1 on question 12 of QIDS. Underwent bilateral ECT without complication. CCM.
--- NOTE | 2018-10-05 13:16 | ASMTCMCOM ---
CM Note CM Note Notes: CC contacted [facility] at ; she noted that 11:30am family meeting would work great. CC informed provider of meeting, etc.* Date Signed: 10/05/2018 01:16 PM Electronically Signed By:Jamari Ledezma
[2018-10-05] MEDS ORDERED: ACETAMINOPHEN 500 MG TAB PO PRN (15:38)
[2018-10-05] MEDS: lamoTRIgine 25 MG TAB PO SCH (19:47)
[2018-10-05] MEDS: OLANZapine 10 MG TAB PO SCH (19:47)
[2018-10-05] MEDS: TEMAZEPAM 15 MG CAP PO SCH (19:47)
[2018-10-06 08:08] VITALS: BP 105/56
[2018-10-06] MEDS ORDERED: lamoTRIgine 25 MG TAB PO SCH (12:21)
--- NOTE | 2018-10-06 13:12 | GDS ---
IDENTIFYING DATA: The patient is a 48-year-old white male brought in by his on the melany mmendation of his outpatient psychiatrist, Angel Farrell MD. This database report writer has treated this patient in the past for his bipolar mood disorder with electroconvulsive therapy in 2006 and again in 2012. He had a recent psychiatric hospitalization at [place] in May of 2018. He was admitted on and discharged today, 10/06/2018. REASON FOR ADMISSION: This patient is presenting now with a severe exacerbation of his bipolar 1 dis order, which has, by history, psychotic and near catatonic features. He presents now with predominan tly depressed symptoms that fluctuate with periods of mixed symptomatology. He has near global insom eda, racing thoughts, agitation, free-floating anxiety, and incessant nihilistic rumination. He has developed hopelessness, excessive guilt, and suicidal ideation with tenuous impulse control. He has proved non-responsive to or intolerant of medications that Dr. Farrell has tried and has a history of good response clinically to ECT, limited mostly by severe nausea. Routine physical exam performed by Sd Uriarte, which revealed: 1. Bipolar disorder with plan for ECT per psychiatrist. 2. Dyslipidemia. Based on his lipid panel of 2012, his 10-year risk of heart disease is calculated at 1.9%, and there is no indication for medication. He can address this again with his primary care provider if he cares to. He should consider repeat lipid panel every 5-10 years. 3. Weight loss, likely due to lifestyle changes. It would probably benefit him to resume a higher l evel of exercise. I see no medical contraindications to this patient's continued stay on the [facility] behavioral unit or to any psychiatric medications or procedures. LAB WORK: Patient's CBC and biochem profile were within normal limits. His highly sensitive C-react cristiano protein was normal at 0.9; 25-hydroxy vitamin D was 56. TSH is 1.79. Urinalysis was negative. Urine toxicology was negative. HOSPITAL COURSE: The patient underwent a total of 3 bilateral acute ECT treatments with good effect. His QIDS score was notably lower, and his answer to question #12 indicating suicidal ideation came down from 2 to 1. His total score went from 20 to 15. His affect was brighter, and he was more enga ged and communicative. Subjectively, he feels as if the intensity and frequency of his rumination ar e decreased, and although he remains with some suicidal thinking, that too is much less intense and c ompelling him to any self-injurious action. He has developed some hope with this initial change with ECT as well. Some medication changes were implemented as well. His benzodiazepine was changed to Restoril at h.s. for sleep given its shorter half-life than the Ativan. His olanzapine was increased to 15 mg from 1 0. He gave his informed consent to start lamotrigine, which was titrated up to 50 mg with no evidenc e of rash or any side effects. Scopolamine patch and a number of other antinausea interventions were implemented during this treatment course that has provided him, thankfully, with surprisingly little in the way of nausea. This is of great importance as the nausea historically has deterred him from coming back to ECT sooner. DISCHARGE MEDICATIONS: Lamotrigine 50 mg p.o. q.h.s., olanzapine 15 mg p.o. q.h.s., promethazine 25 mg p.o. q.6 hours p.r.n. nausea, scopolamine patch 1.5 mg to be applied the day of ECT and taken off 6 hours later, temazepam 30 mg p.o. q.h.s. DISPOSITION: The patient will return home with his , who will provide 24/ supervision. They ar e to remove all lethal means of self-harm from the home. He should have his medications dispensed to him. No driving until otherwise specified. He will continue outpatient acute ECT. The Lamictal do se should stay at 50 mg through the acute course of treatment, and he will receive instructions how t o titrate it after that is finished. Likewise, lithium is to be restarted by Dr. Farrell at a dose de emed tolerable based on prior experience after the acute ECT is completed. He will stay on olanzapin e and temazepam at unchanged doses for now. It is my recommendation, however, that he taper off the benzodiazepine when he is able to sleep more regularly, which should happen when his mood symptoms ar e improved further. DISCHARGE DIAGNOSIS: [place] I: Bipolar 1 disorder, depressed/mixed, with history of catatonic and psy chotic features; history of dyslipidemia and tension headaches. /[id number]/MODL
== END 2018-10-06 13:10 | disposition home or self-care (01) | DRG 885 ==
LOC: BBEH 13:51
PROVIDERS: ADMIT Psychiatry & Neurology Psychiatry; ATTEND Psychiatry & Neurology Psychiatry
PROC: GZB2ZZZ Electroconvulsive Therapy, Bilateral-Single Seizure (ICD-10-PCS; principal; 2018-09-30)
DX: F31.63 Bipolar disorder, current episode mixed, severe, without psychotic features (principal); E78.5 Hyperlipidemia, unspecified
CPT/HCPCS: 80307; 86141-90; G0480; J1885; J2250; J3010